=== PATIENT | male | born 1985 | race Two or more races ===

== ENCOUNTER 2020-07-08 20:26 | Emergency (ER) | payer SELFPAY ==
[~2020-07-08] VITALS: Ht 172.7 cm; Wt 100.2 kg
[2020-07-08] MEDS ORDERED: LORAZEPAM INJ 2 MG/ML VIAL ONE (20:38)
[2020-07-08] MEDS ORDERED: OLANZAPINE 10 MG VIAL IM ONE (20:38)
[2020-07-08 20:54] LABS: BASOPHILS % (AUTO) 0.3 % (0.0-2.0); HEMATOCRIT 37 % (39-51); HEMOGLOBIN 12.7 g/dL (13.5-17.5); LYMPHOCYTES # (AUTO) 0.8 /CMM (0.8-4.8); LYMPHOCYTES % (AUTO) 5.6 % (20.0-44.0); MEAN CORPUSCULAR HGB CONC 34 g/dl (31.0-36.0); MEAN CORPUSCULAR VOLUME 92 fL (80-96); MONOCYTES # (AUTO) 0.7 /CMM (0.1-1.30); MONOCYTES % (AUTO) 4.9 % (2.0-12.0); NEUTROPHILS # (AUTO) 13.1 /CMM (1.8-8.9); NEUTROPHILS % (AUTO) 89.2 % (43.0-81.0); PLATELET COUNT (AUTO) 288 /CMM (150-450); RED BLOOD CELL COUNT(AUTO) 4.06 MIL/uL (4.5-6.0); WHITE BLOOD COUNT (AUTO) 14.6 K/uL (4.3-11.0)
[2020-07-08] MEDS: LORAZEPAM INJ 2 MG/ML VIAL IV ONE (20:55)
[2020-07-08] MEDS: OLANZAPINE 10 MG VIAL IM ONE (20:55)
--- NOTE | 2020-07-08 20:56 | NUR ---
[facility] C/O HEARING VOICES "TELLING ME TO KICK MY ASS", HI "I WANT TO HURT SOMEONE". DENIES SI. ADMITS TO [facility] USE TODAY. PT AAOX3, CALM & COOPERATIVE, NAD NOTED AT THIS TIME. PT SEEN & EVAL'D BY DR. ALVARADO. MEDICATED ORDERED, PT STEFAN WELL
[2020-07-08 21:02] LABS: CARBON DIOXIDE 20 mmol/L (21-32); CHLORIDE 102 mmol/L (98-107); CREATININE 1.1 mg/dL (0.6-1.3); GLUCOSE 114 mg/dL (74-106); POTASSIUM 3.3 mmol/L (3.5-5.1); SODIUM SERUM 137 mmol/L (136-145); UREA NITROGEN, BLOOD 13 mg/dL (7-18)
[2020-07-08 21:49] LABS: ACETAMINOPHEN < 2 ug/ml (10-30); ALANINE AMINOTRANSFERASE 43 U/L (12-78); ALBUMIN 4.4 g/dL (3.4-5.0); ALCOHOL, BLOOD 88 mg/dL (0-0); ALKALINE PHOSPHATASE 123 U/L (46-116); ASPARTATE AMINOTRANSFERASE 39 U/L (15-37); BILIRUBIN,DIRECT 0.1 mg/dL (0.0-0.2); BILIRUBIN,TOTAL 0.5 mg/dL (0.2-1.0); SALICYLATE 1.3 mg/dL (2.8-20.0); TOTAL PROTEIN, SERUM 8.1 g/dL (6.4-8.2)
--- NOTE | 2020-07-08 22:18 | NUR ---
Urine collected and sent to the lab.
--- NOTE | 2020-07-08 22:43 | NUR ---
Patient is resting comfortably in bed with eyes closed. Easily aroused. VSS
--- NOTE | 2020-07-09 01:38 | NUR ---
PT RESTING COMFORTABLY IN BED. OPENS EYES TO VOICE. AAOX4. PT DENIES SI/HI AT THIS TIME. VITAL SIGNS STABLE, WILL CONTINUE TO MONITOR
--- NOTE | 2020-07-09 05:15 | NUR ---
PT AWAKE, AAOX4. DENIES SI/HI AT THIS TIME. AWARE
--- NOTE | 2020-07-09 05:21 | NUR ---
PT AWAKE. AAOX4. AMBULATORY WITH STEADY GAIT. PER DR. MCGINNIS, PT MEDICALLY CLEARED FOR DISCHARGE. Patient discharged to home in stable condition. Written and verbal after care instructions given. Patient verbalizes understanding of instruction.
[2020-07-09 05:23] VITALS: BP 122/72
== END 2020-07-09 05:23 | disposition home or self-care (01) ==
LOC: ER 20:33
DX: F19.159 Other psychoactive substance abuse with psychoactive substance-induced psychotic disorder, unspecified (principal); F10.129 Alcohol abuse with intoxication, unspecified; F19.10 Other psychoactive substance abuse, uncomplicated; D72.829 Elevated white blood cell count, unspecified; D64.9 Anemia, unspecified; E87.6 Hypokalemia; R74.0 Nonspecific elevation of levels of transaminase and lactic acid dehydrogenase [LDH]; R00.0 Tachycardia, unspecified; R45.1 Restlessness and agitation; R45.851 Suicidal ideations; Y90.4 Blood alcohol level of 80-99 mg/100 ml
CPT/HCPCS: 36415; 80048; 80076; 80305; 80307; 80329; 85025; 96372 ×2; 99284; G0480; J2060; J3490